=== PATIENT | male | born 1980 | race Caucasian/White ===

== ENCOUNTER 2019-03-13 10:47 | Emergency (ER) | payer MEDICAID ==
[~2019-03-13] VITALS: Ht 182.9 cm; Wt 79.4 kg
[2019-03-13 10:47] VITALS: BP_SYST 152
--- NOTE | 2019-03-13 10:47 | NUR ---
Patient triaged and placed in waiting room. VSS and patient appears in no acute distress at this time. Accompanied by SPOUSE, awaiting available bed, and MD notified of need for MSE.
--- NOTE | 2019-03-13 11:01 | NUR ---
TAKEN TO RADIOLOGY VIA WHEELCHAIR FROM WAITING ROOM .
--- NOTE | 2019-03-13 11:33 | NUR ---
BROUGHT BACK TO BED #8 AND REPORT GIVEN TO MERLYN.
--- NOTE | 2019-03-13 11:35 | NUR ---
DR THURMAN AT BEDSIDE FOR EVALUATION
[2019-03-13] MEDS ORDERED: IBUPROFEN 600 MG TABLET PO ONE (11:45)
[2019-03-13] MEDS ORDERED: HYDROcodone/ACETAMIN 5-325 MG TAB (NORCO/ VICODIN) PO ONE (11:45)
[2019-03-13] MEDS ORDERED: ONDANSETRON 4 MG ODT TAB PO ONE (11:45)
--- NOTE | 2019-03-13 11:47 | NUR ---
ORTHO BOOT PLACED BY DR THURMAN, PT TOLERATED IT WELL. WORK NOTE GIVEN TO PT.
--- NOTE | 2019-03-13 12:09 | NUR ---
Crutches properly fitted for patient by ARACELI JAFFE RN. Patient given crutch walking instructions and demonstration. Is able to demonstrate adequate crutch walking technique with crutches provided.
[2019-03-13 12:18] VITALS: BP_SYST 147
--- NOTE | 2019-03-13 12:19 | NUR ---
Patient given written and verbal discharge instructions and verbalizes understanding. ER MD discussed with patient the results and treatment provided. Patient in stable condition. ID arm band removed. Rx of NORCO, ZOFRAN, MOTRIN given. Patient educated on pain management and to follow up with PMD. Pain Scale 0/10. Opportunity for questions provided and answered. Medication side effect fact sheet provided.
== END 2019-03-13 12:18 | disposition home or self-care (01) ==
LOC: SED 10:47
DX: S82.831A Other fracture of upper and lower end of right fibula, initial encounter for closed fracture (principal); W19.XXXA Unspecified fall, initial encounter; Y93.89 Activity, other specified; Y92.89 Other specified places as the place of occurrence of the external cause; Y99.8 Other external cause status
CPT/HCPCS: 73610; 73630; 99284; Q0162

== ENCOUNTER 2019-05-04 13:24 | Emergency (ER) | payer MEDICAID ==
[~2019-05-04] VITALS: Ht 182.9 cm; Wt 81.6 kg
[2019-05-04 13:35] VITALS: BP_SYST 140
--- NOTE | 2019-05-04 13:37 | NUR ---
Patient to ER bed 07 to gown for evaluation. Side rails up.
--- NOTE | 2019-05-04 13:40 | NUR ---
Pt carlos by self, A&Ox4, pt presents to ER for medical clearance, pt had a R ankle injury/fracture 2 months ago, pt needs clarance to go back to work, unable to see PCP, pt denies pain , c/o stiffness, pt states his baseline HR is 127 to 130 , skin pink and warm, cap refill <3.
--- NOTE | 2019-05-04 13:50 | NUR ---
Aydee De FOOD SERVER at bedside examining patient
[2019-05-04 14:25] VITALS: BP_SYST 140
--- NOTE | 2019-05-04 14:25 | NUR ---
Patient given written and verbal discharge instructions and verbalizes understanding. ER MD discussed with patient the results and treatment provided. Patient in stable condition. ID arm band removed. No Rx given. Patient educated on pain management and to follow up with PMD. Pain Scale 0/10. Opportunity for questions provided and answered. Medication side effect fact sheet provided.
== END 2019-05-04 14:25 | disposition home or self-care (01) ==
LOC: SED 13:24
DX: R00.0 Tachycardia, unspecified (principal); F10.99 Alcohol use, unspecified with unspecified alcohol-induced disorder; F12.90 Cannabis use, unspecified, uncomplicated; R03.0 Elevated blood-pressure reading, without diagnosis of hypertension
CPT/HCPCS: 93005; 99283